=== PATIENT | female | born 1975 | race African-American/Black ===

== ENCOUNTER 2023-11-03 13:26 | Emergency (ER) | payer SELFPAY ==
[~2023-11-03] VITALS: Ht 162.6 cm; Wt 75.0 kg
[2023-11-03 14:40] VITALS: O2SAT 99
[2023-11-03 14:58] LABS: BASOPHILS % 0.8 % (0.0-2.0); EOSINOPHILS % 1.1 % (0.0-5.0); HEMATOCRIT. 33.3 % (36.0-48.0); HEMOGLOBIN. 10.9 g/dL (12.0-16.0); LYMPHOCYTES % 37.6 % (20.0-50.0); MEAN CORPUSCULAR HEMOGLOBIN 27.8 pg (28.0-32.0); MEAN CORPUSCULAR HGB CONC 32.6 g/dL (31.0-37.0); MEAN CORPUSCULAR VOLUME 85.4 fL (81.0-99.0); MEAN PLATELET VOLUME 8.2 fl (7.4-10.4); MONOCYTES % 11.6 % (2.0-8.0); NEUTROPHILS % 48.9 % (40.0-76.0); PLATELET 273 x1000/uL (130-400); RED CELL DISTRIBUTION WIDTH 15.7 % (11.6-14.6); WHITE BLOOD COUNT 4.6 x1000/uL (4.5-11.0)
[2023-11-03 15:09] LABS: CHLORIDE 105 mEq/L (98-107); POTASSIUM 3.4 mEq/L (3.5-5.1); SODIUM 139 mEq/L (136-145)
[2023-11-03 15:10] LABS: CALCIUM 9.2 mg/dL (8.7-10.4); CARBON DIOXIDE 28 mEq/L (21-32)
[2023-11-03 15:15] LABS: CREATININE 0.9 mg/dL (0.6-1.0); GLUCOSE 92 mg/dL (70-105); UREA NITROGEN BLOOD 12 mg/dL (9-23)
[2023-11-03 15:17] LABS: ACETAMINOPHEN < 2 ug/mL (10-30)
[2023-11-03 15:23] LABS: ETHANOL BLOOD < 10 mg/dL (<10)
[2023-11-03 15:25] LABS: HCG SCREEN NEGATIVE
[2023-11-03 18:59] VITALS: TEMP 36.55848
[2023-11-04 08:00] VITALS: BP 108/72; PULSE 70; RESP 14; O2SAT 100
== END 2023-11-04 14:27 | disposition home or self-care (01) ==
LOC: ER 13:26
DX: R46.2 Strange and inexplicable behavior (principal)
CPT/HCPCS: 36415; 80048; 80307; 80320; 80329; 82962; 84703; 85025; 99291; G0480